=== PATIENT | female | born 1950 | race Caucasian/White ===

== ENCOUNTER 2023-01-26 07:35 | Emergency (ER) | payer OTHER, SELFPAY ==
[2023-01-26] MEDS ORDERED: HYDROCODONE/APAP 10/325 TAB ONE (09:05)
[2023-01-26] MEDS ORDERED: MORPHINE 4 MG/ML SYR ONE (09:05)
--- NOTE | 2023-01-26 09:24 | EDPHYS ---
Physician Documentation [facility] Name: Karen Dos Santos Age: 72 yrs Sex: Female : 1950 Arrival Date: 01/26/2023 Time: 07:46 Bed 13 Private MD: ED Physician Paxton Crowley Historical: - Allergies: 01/26 07:48 No Known Allergies; db - Home Meds: 07:48 Lisinopril Oral [Active]; db - PMHx: 07:48 Hypertensive disorder; db - Immunization history:: Adult Immunizations unknown. - Social history:: Smoking status: Patient denies any tobacco usage or history of. Vital Signs: 07:46 BP 120 / 51; Pulse 88; Resp 18; Temp 98.1(O); Pulse Ox 100% on R/A; Weight 104.33 kg; db Height 5 ft. 3 in. ; Pain 10/10; 08:38 BP 143 / 76; Pulse 95; Resp 18; Pulse Ox 98% on R/A; db 07:46 Body Mass Index 40.74 (104.33 kg, 160.02 cm) db 07:46 Pain Scale: Adult db MDM: 09:23 Patient medically screened. kdr 01/26 07:47 Order name: Shoulder Left (2 View) XRAY kdr 01/26 08:40 Order name: Misc. Order: Posterior humerus/shoulder splint kdr 01/26 08:40 Order name: Sling kdr Administered Medications: No medications were administered Disposition Summary: 01/26/23 09:23 Discharge Ordered Location: Home kdr Problem: new kdr Symptoms: have improved kdr Condition: Stable kdr Diagnosis - Displaced oblique fracture of shaft of humerus, left arm, initial encounter for kdr closed fracture Followup: kdr - With: Private Physician - When: 2 - 3 days - Reason: If symptoms return, Further diagnostic work-up, Recheck today's complaints, Continuance of care, Re-evaluation by your physician Forms: - Medication Reconciliation Form kdr - Thank You Letter kdr - Antibiotic Education kdr - Prescription Opioid Use kdr Signatures: Dispatcher [employer] EDMS Paxton Crowley MD MD kdr Court Keller, RN RN db
--- NOTE | 2023-01-26 09:24 | ER ---
Nurse's Notes [facility] Name: Karen Dos Santos Age: 72 yrs Sex: Female : 1950 Arrival Date: 01/26/2023 Time: 07:46 Bed 13 Private MD: Diagnosis: Displaced oblique fracture of shaft of humerus, left arm, initial encounter for closed fracture Presentation: 01/26 07:46 Chief complaint: EMS states: per EMS patient had a fall about 0700 today. patient db states tripped and fell on the way out of the hotel on the rug and hurt left arm. Coronavirus screen: Vaccine status: Patient reports receiving the 1st dose of the Covid vaccine. Client denies travel out of the [place] in the last 14 days. At this time, the client does not indicate any symptoms associated with coronavirus-19. Ebola Screen: Patient negative for fever greater than or equal to 101.5 degrees Fahrenheit, and additional compatible Ebola Virus Disease symptoms Patient denies exposure to infectious person. Patient denies travel to an Ebola-affected area in the 21 days before illness onset. No symptoms or risks identified at this time. Initial Sepsis Screen: Does the patient meet any 2 criteria? No. Patient's initial sepsis screen is negative. Does the patient have a suspected source of infection? No. Patient's initial sepsis screen is negative. Risk Assessment: Do you want to hurt yourself or someone else? Patient reports no desire to harm self or others. Onset of symptoms was January 26, 2023. Onset of symptoms was January 26, 2023 at 07:00. 07:46 Method Of Arrival: EMS db 07:46 Acuity: KYUNG 3 db Triage Assessment: 07:48 General: Appears in no apparent distress. uncomfortable, Behavior is calm, cooperative. db Pain: Complains of pain in left arm. Neuro: Level of Consciousness is awake, alert, obeys commands, Oriented to person, place, time, situation, Speech is normal. Historical: - Allergies: 07:48 No Known Allergies; db - Home Meds: 07:48 Lisinopril Oral [Active]; db - PMHx: 07:48 Hypertensive disorder; db - Immunization history:: Adult Immunizations unknown. - Social history:: Smoking status: Patient denies any tobacco usage or history of. Screenin:[facility] ED Fall Risk Assessment (Adult) History of falling in the last 3 months, db including since admission No falls in past 3 months (0 pts) Confusion or Disorientation No (0 pts) Intoxicated or Sedated Impaired Gait No (0 pts) Mobility Assist Device Used No (0 pt) Altered Elimination No (0 pt) Score/Fall Risk Level 0 - 2 = Low Risk Oriented to surroundings, Maintained a safe environment, Educated pt \T\ family on fall prevention, incl call for assistance when getting out of bed. Abuse screen: Denies threats or abuse. Has been threatened or abused. Nutritional screening: No deficits noted. Tuberculosis screening: No symptoms or risk factors identified. Assessment: 08:26 Reassessment: Patient appears in no apparent distress at this time. Patient and/or db family updated on plan of care and expected duration. Pain level reassessed. Patient is alert, oriented x 3, equal unlabored respirations, skin warm/dry/pink. General: Appears in no apparent distress. comfortable, Behavior is calm, cooperative. Neuro: Level of Consciousness is awake, alert, obeys commands, Oriented to person, place, time, situation. Respiratory: Airway is patent Respiratory effort is even, unlabored, Respiratory pattern is regular, symmetrical. Vital Signs: 07:46 BP 120 / 51; Pulse 88; Resp 18; Temp 98.1(O); Pulse Ox 100% on R/A; Weight 104.33 kg; db Height 5 ft. 3 in. ; Pain 10/10; 08:38 BP 143 / 76; Pulse 95; Resp 18; Pulse Ox 98% on R/A; db 07:46 Body Mass Index 40.74 (104.33 kg, 160.02 cm) db 07:46 Pain Scale: Adult db ED Course: 07:46 Patient arrived in ED. db 07:46 Paxton Crowley MD is Attending Physician. kdr 07:48 Triage completed. db 07:50 Arm band placed on right wrist. db 08:19 Shoulder Left (2 View) XRAY In Process Unspecified. EDMS 08:25 Court Keller, RN is Primary Nurse. db Administered Medications: No medications were administered Outcome: 09:23 Discharge ordered by . kdr Signatures: Dispatcher [employer] EDMS Paxton Crowley MD MD kdr Court Keller, RN RN db
--- NOTE | 2023-01-26 12:19 | RAD REPORT ---
EXAM DESCRIPTION: RAD - Shoulder Left 2 View - 01/26/2023 8:17 am CLINICAL HISTORY: PAIN COMPARISON: No comparisons TECHNIQUE: Internal and external rotation views of the left shoulder were obtained. FINDINGS: No dislocation. Obliques midshaft left humeral fracture with lateral apex angulation. AC j oint is normal in appearance. Glenohumeral joint is well aligned. No acute or suspicious findings. IMPRESSION: Obliques midshaft left humerus fracture with lateral apex angulation.
--- NOTE | 2023-01-26 12:21 | RAD REPORT ---
EXAM DESCRIPTION: RAD - Humerus Left - 01/26/2023 9:58 am CLINICAL HISTORY: post reduction;Pain COMPARISON: No comparisons TECHNIQUE: Left Humerus, 3 views. FINDINGS: Oblique midshaft left humerus fracture, with less than 1 shaft with lateral and posterior displacement of the distal fragment. Adjacent soft tissue swelling. Fiberglass splint material in gisella ce. There is no dislocation or periosteal reaction noted. No foreign body or other soft tissue abnorm ality. IMPRESSION: Displaced midshaft left humerus fracture as above.
[2023-01-26 12:28] VITALS: TEMP 98.1
[2023-01-26 12:30] VITALS: BP 148/76; O2SAT 99
== END 2023-01-26 10:46 | disposition home or self-care (01) ==
LOC: ER 07:35
DX: S42.332A Displaced oblique fracture of shaft of humerus, left arm, initial encounter for closed fracture (principal); I10 Essential (primary) hypertension